=== PATIENT | male | born 1980 | race American Indian/Alaskan Native ===

== ENCOUNTER 2020-01-31 02:42 | Emergency (ER) | payer MEDICAID ==
--- NOTE | 2020-01-31 03:38 | Emergency Department Report ---
<DOUG POND - Last Filed: 01/31/20 12:04> ED General Adult HPI - General Chief complaint: Psych Stated complaint: MH EVAL/SUICIDAL Time Seen by Provider: 01/31/20 03:30 - Related Data Home Medications Medication Instructions Recorded Confirmed Last Taken Keppra 2,000 mg PO BID 01/31/20 01/31/20 Unknown Lacosamide [Vimpat] 200 mg PO BID 01/31/20 01/31/20 Unknown Metformin HCl [Glucophage] 1,000 mg PO BID 01/31/20 01/31/20 Unknown Mirtazapine [Remeron 30mg TAB] 30 mg PO QHS 01/31/20 01/31/20 Unknown OLANZapine [Zyprexa] 20 mg PO QHS 01/31/20 01/31/20 Unknown Omeprazole 40 mg PO QDAY 01/31/20 01/31/20 Unknown Triumeq 600-50-300 mg Tablet 1 tab PO QDAY 01/31/20 01/31/20 Unknown Zonisamide 100 mg PO QDAY 01/31/20 01/31/20 Unknown Allergies Allergy/AdvReac Type Severity Reaction Status Date / Time No Known Allergies Allergy Unverified 01/31/20 03:01 ED Past Medical Hx - Medications Home Medications: Home Medications Medication Instructions Recorded Confirmed Last Taken Type Keppra 2,000 mg PO BID 01/31/20 01/31/20 Unknown History Lacosamide [Vimpat] 200 mg PO BID 01/31/20 01/31/20 Unknown History Metformin HCl [Glucophage] 1,000 mg PO BID 01/31/20 01/31/20 Unknown History Mirtazapine [Remeron 30mg TAB] 30 mg PO QHS 01/31/20 01/31/20 Unknown History OLANZapine [Zyprexa] 20 mg PO QHS 01/31/20 01/31/20 Unknown History Omeprazole 40 mg PO QDAY 01/31/20 01/31/20 Unknown History Triumeq 600-50-300 mg Tablet 1 tab PO QDAY 01/31/20 01/31/20 Unknown History Zonisamide 100 mg PO QDAY 01/31/20 01/31/20 Unknown History ED Medical Decision Making - Lab Data Result diagrams: 01/31/20 03:46 01/31/20 03:46 - Medical Decision Making Patient has been evaluated by our psychiatric team and advised that patient to be discharged home to follow-up as an outpatient. Patient is currently denying any suicidal or homicidal ideation. No visual or auditory hallucination. Patient is medically and psychiatrically stable for discharge. ED Disposition Clinical Impression: Suicidal ideation Disposition: DC-01 TO HOME OR SELFCARE Is pt being admited?: No Condition: Stable Instructions: Suicide Prevention for Adults (ED) Referrals: SINDHU OLVERA MD [Primary Care Provider] - 3-5 Days <NATIVIDAD PARIS - Last Filed: 02/01/20 05:38> ED General Adult HPI - General PUI?: No Source: patient, EMS ( EMS documentation not available at time of chart di ctation ), RN notes reviewed Mode of arrival: Stretcher Limitations: Other (The patient is a poor historian) - History of Present Illness Initial comments: This is a 39-year-old gentleman who is reportedly HIV positive, unknown CD4 count, unknown viral load, history of diabetes, seizures, psychiatric disease, unknown if patient has a history of developmental delay, brought to the hospital by EMS with a complaint of resolved suicidality. Patient states he was supposed to have a family member come by and visit from [place], and apparently this was canceled, or discontinued. This initially made him feel suicidal. This is now resolved. The patient denies physical pain at this time. The patient den ies wanting to overdose at this time. The patient is not accompanied by a friend, family member or region manager at this time for additional information or collateral information. -: Sudden Consistency: now resolved Improves with: none Worsens with: none ED Review of Systems ROS: Stated complaint: MH EVAL/SUICIDAL Other details as noted in HPI Constitutional: denies: fever Respiratory: denies: cough Cardiovascular: denies: chest pain Gastrointestinal: denies: abdominal pain Genitourinary: denies: dysuria Musculoskeletal: denies: back pain Psychiatric: denies: auditory hallucinations, visual hallucinations, homicidal thoughts ED Past Medical Hx - Past Medical History Previous Medical History?: Yes Hx Seizures: Yes Hx Psychiatric Treatment: Yes Hx HIV: Yes Additional medical history: bipolar - Surgical History Past Surgical History?: No - Social History Smoking Status: Former Smoker Substance Use Type: None ED Physical Exam - General Limitations: Other (Patient is difficult to understand patient is a poor historian) General appearance: alert, in no apparent distress - Head Head exam: Present: atraumatic, normocephalic - Eye Eye exam: Present: normal appearance, EOMI - ENT ENT exam: Present: normal exam, normal orophraynx, mucous membranes moist, normal external ear exam - Neck Neck exam: Present: normal inspection, full ROM. Absent: tenderness, mening ismus - Respiratory Respiratory exam: Present: normal lung sounds bilaterally. Absent: respiratory distress - Cardiovascular Cardiovascular Exam: Present: regular rate, normal rhythm, normal heart sounds. Absent: bradycardia, tachycardia, irregular rhythm, systolic murmur, diastolic murmur, rubs, gallop - GI/Abdominal GI/Abdominal exam: Present: soft, normal bowel sounds. Absent: distended, tenderness, guarding, rebound, rigid, pulsatile mass - Rectal Rectal exam: Present: deferred - Extremities Exam Extremities exam: Present: normal inspection, full ROM, other (2+ pulses noted in the bilateral upper and lower extremities. There is no palpable cord. negative Homans sign. Muscular compartments are soft. The pelvis is stable.). Absent: pedal edema, calf tenderness - Back Exam Back exam: Present: normal inspection, full ROM. Absent: tenderness, CVA tenderness (R), CVA tenderness (L), muscle spasm, paraspinal tenderness, vertebral tenderness - Neurological Exam Neurological exam: Present: alert, normal gait, other (No facial droop. Tongue midline. Extraocular movements intact bilaterally. Facial sensation intact to light touch in V1, V2, V3 distribution bilaterally. 5 and a 5 strength in 4 extremities. Sensation intact to light touch in 4 extremities.). Absent: motor sensory deficit - Psychiatric Psychiatric exam: Present: anxious - Skin Skin exam: Present: warm, dry, intact, normal color. Absent: rash ED Course Vital Signs 01/31/20 01/31/20 01/31/20 03:01 08:00 08:05 Temperature 98.6 F 97.9 F Pulse Rate 99 H 88 88 Respiratory 18 18 Rate Blood Pressure Blood Pressure 142/94 151/105 151/105 [right arm] O2 Sat by Pulse 95 96 Oximetry 01/31/20 01/31/20 08:08 08:14 Temperature Pulse Rate 88 Respiratory 18 Rate Blood Pressure 151/105 Blood Pressure [right arm] O2 Sat by Pulse 96 Oximetry - Reevaluation(s) Reevaluation #1: 01/31/20 04:27 Differential diagnosis, including but not limited to: Disorganized behavior, developmental delay, bipolar, schizophrenia, medical clearance for psychiatric placement Assessment and plan: 39-year-old gentleman with disorganized behavior, appears to be a poor historian, with resolved complaint of suicidality. He is afebrile with reassuring vital signs. His physical exam is benign and unremarkable. He is placed on hold status. Psychiatric consultation is requested. I have requested that nursing team reconcile his home medications. Screening laboratory studies ordered. Reevaluation #2: 01/31/20 05:04 At this point in time, there is no apparent medical contraindication to psychiatric admission, evaluation, consultation and placement. ED Medical Decision Making - Lab Data Result diagrams: 01/31/20 03:46 01/31/20 03:46 Vital Signs 01/31/20 03:01 Temperature 98.6 F Pulse Rate 99 H Respiratory 18 Rate Blood Pressure 142/94 [right arm] O2 Sat by Pulse 95 Oximetry Lab Results 01/31/20 Range/Units 03:46 Hgb 14.6 (11.8-15.2) gm/dl Hct 43.1 (35.5-45.6) % Plt Count 254 (140-440) K/mm3 Critical care attestation.: If time is entered above; I have spent that time in minutes in the direct care of this critically ill patient, excluding procedure time. ED Disposition Is pt being admited?: No Does the pt Need Aspirin: No
[2020-01-31 04:08] LABS: Hematocrit 43.1 % (35.5-45.6); Hemoglobin 14.6 gm/dl (11.8-15.2)
[2020-01-31 04:36] LABS: BUN/Creatinine Ratio 8; Blood Urea Nitrogen 10 mg/dL (9-20); Calcium 9.9 mg/dL (8.4-10.2); Hemolysis Index 5
[2020-01-31] MEDS ORDERED: HALOPERIDOL LACTATE 5 MG/1 ML INJ IM PRN (04:37)
[2020-01-31] MEDS ORDERED: LORazepam 2 MG/ML VIAL IM PRN (04:37)
[2020-01-31] MEDS ORDERED: metFORMIN 500 MG TAB PO SCH (08:00)
[2020-01-31 08:01] VITALS: BP 151/105
[2020-01-31] MEDS ORDERED: amLODIPine 5 MG TAB PO ONE (08:03)
[2020-01-31] MEDS ORDERED: amLODIPine 5 MG TAB ONE (08:08)
[2020-01-31] MEDS ORDERED: levETIRAcetam 500 MG TAB PO SCH (10:00)
[2020-01-31] MEDS ORDERED: LACOSAMIDE 100 MG TAB PO SCH (10:00)
[2020-01-31] MEDS ORDERED: ZONISAMIDE 100 MG PO SCH (10:00)
[2020-01-31] MEDS ORDERED: TRIUMEQ PO SCH (10:00)
[2020-01-31] MEDS ORDERED: PANTOPRAZOLE 40 MG TAB PO SCH (10:00)
[2020-01-31] MEDS ORDERED: MIRTAZAPINE 30 MG TAB PO SCH (22:00)
== END 2020-01-31 13:56 | disposition home or self-care (01) ==
LOC: ED 02:42
DX: R45.851 Suicidal ideations (principal); F31.9 Bipolar disorder, unspecified; Z86.69 Personal history of other diseases of the nervous system and sense organs; Z21 Asymptomatic human immunodeficiency virus [HIV] infection status; Z79.899 Other long term (current) drug therapy; Z87.891 Personal history of nicotine dependence
CPT/HCPCS: 36415; 80048; 82550; 82962; 83735; 85014; 85018; 85049; 96372; 99284; J1630; J2060; 80320; G0480